=== PATIENT | male | born 1960 | race Caucasian/White ===

== ENCOUNTER 2022-08-21 14:51 | Emergency (ER) | payer MEDICAID ==
[2022-08-21] MEDS: Diltiazem 25 MG/5 ML SDV IVPUSH ONE ×2 (15:17→15:37)
[2022-08-21 15:55] LABS: ALANINE AMINOTRANSFERASE,ALT 23 U/L (12-78); ALBUMIN 3.3 g/dL (3.4-5.0); ALKALINE PHOSPHATASE 76 U/L (46-116); ASPARTATE AMNIOTRANSFERASE,AST 27 U/L (15-37); BILIRUBIN TOTAL 0.6 mg/dL (0.0-1.0); BLOOD UREA NITROGEN,BUN 17 mg/dL (7-18); C-REACTIVE PROTEIN 1.07 mg/dL (<=0.30); CALCIUM 9.1 mg/dL (8.4-10.1); CARBON DIOXIDE,CO2 38 mmol/L (21-32); CHLORIDE,CL 97 mEq/L (98-106); GLUCOSE RANDOM 166 mg/dL (75-99); POTASSIUM,K 3.4 mEq/L (3.5-5.0); PRO B-TYPE NATRIUR PEPT,BNPPRO 2176 pg/mL (0-1000); SODIUM,NA 140 mEq/L (136-145)
[2022-08-21 15:58] LABS: ESTIMATED GFR 86 mL/min (>=60)
== END 2022-08-21 17:18 | disposition home or self-care (01) ==
LOC: CC.ED 14:51
DX: I48.91 Unspecified atrial fibrillation (principal); J44.9 Chronic obstructive pulmonary disease, unspecified; K21.9 Gastro-esophageal reflux disease without esophagitis; Z79.899 Other long term (current) drug therapy; Z79.01 Long term (current) use of anticoagulants; Z91.048 Other nonmedicinal substance allergy status
CPT/HCPCS: 36415; 71045; 80053; 83880; 84484; 85025; 86140; 93005; 96374; 99285-25; J3490

== ENCOUNTER 2022-08-29 01:04 | Emergency (ER) | payer MEDICAID ==
[2022-08-29] MEDS: Morphine 2 MG/ML SYRINGE IVPUSH ONE (01:40)
[2022-08-29 01:48] LABS: BASOPHILS ABSOLUTE AUTO 0.06 10^3/uL (0.00-0.50); BASOPHILS PERCENT AUTO 0.6 % (0-1); EOSINOPHILS ABSOLUTE AUTO 0.07 10^3/uL (0.00-1.50); EOSINOPHILS PERCENT AUTO 0.7 % (0-6); HEMATOCRIT 46.9 % (42.0-52.0); HEMOGLOBIN 14.3 g/dL (14.0-18.0); IMMATURE GRAN ABSOLUTE AUTO 0.02 10^3/uL (0.00-0.49); IMMATURE GRAN PERCENT AUTO 0.2 % (0.0-4.9); LYMPHOCYTES ABSOLUTE AUTO 1.58 10^3/uL (0.60-5.00); LYMPHOCYTES PERCENT AUTO 14.8 % (24-44); MEAN CORPUSCULAR HEMOGLOBIN 26.5 pg (27.0-32.0); MEAN CORPUSCULAR HGB CONC 30.5 g/dL (32.0-36.0); MEAN CORPUSCULAR VOLUME 86.9 fL (83.0-97.0); MONOCYTES ABSOLUTE AUTO 1.24 10^3/uL (0.00-1.50); MONOCYTES PERCENT AUTO 11.6 % (0-10); NEUTROPHILS ABSOLUTE AUTO 7.71 x10^3/uL (1.80-8.00); NEUTROPHILS PERCENT AUTO 72.1 % (41-71); PLATELET COUNT,PLT 229 10^3/uL (150-400); WHITE BLOOD CELL COUNT,WBC 10.7 10^3/uL (4.0-11.0)
[2022-08-29] MEDS ORDERED: Naloxone 2 MG/2 ML Syringe IVPUSH PRN (01:59)
[2022-08-29 02:04] LABS: INR 1.25 (0.92-1.18); PROTHROMBIN TIME 12.8 SEC (9.3-11.3)
[2022-08-29 02:06] LABS: ALBUMIN 2.8 g/dL (3.4-5.0); BILIRUBIN TOTAL 0.4 mg/dL (0.0-1.0); CALCIUM 8.5 mg/dL (8.4-10.1); CREATININE 1.2 mg/dL (0.7-1.3); EST CRCL DRUG DOSING (CG) 65.46 mL/min; MAGNESIUM 1.7 mg/dL (1.8-2.4); POTASSIUM,K 3.3 mEq/L (3.5-5.0); PROTEIN TOTAL,TP 6.1 g/dL (6.4-8.2)
[2022-08-29] MEDS: Sodium Chloride 0.9% 1,000 ML IV ONE (02:10)
[2022-08-29] MEDS: LORazepam 2 MG/ML Syringe IVPUSH ONE (02:30)
[2022-08-29] MEDS ORDERED: Atropine 0.4 MG/ML SDV IVPUSH ONE (03:01)
[2022-08-29] MEDS: Atropine 0.1 MG/ML 10 ML Syringe IVPUSH ONE ×2 (03:06→03:44)
[2022-08-29] MEDS ORDERED: WATER ONE (04:42)
[2022-08-29] MEDS ORDERED: DEXTROSE ONE (04:42)
[2022-08-29] MEDS ORDERED: DOBUTAMINE ONE (04:42)
[2022-08-29] MEDS ORDERED: DOBUTamine/Dextrose 5%-Water 250 MG/250 ML BAG IV SCH (04:45)
[2022-08-29] MEDS: DOPamine/Dextrose 5%-Water 400 MG/250 ML BAG IV SCH (04:47)
== END 2022-08-29 04:55 ==
LOC: CC.ED 01:04
DX: I95.9 Hypotension, unspecified (principal); I48.91 Unspecified atrial fibrillation; I49.5 Sick sinus syndrome; I11.0 Hypertensive heart disease with heart failure; I50.9 Heart failure, unspecified; J44.9 Chronic obstructive pulmonary disease, unspecified; K21.9 Gastro-esophageal reflux disease without esophagitis; F17.210 Nicotine dependence, cigarettes, uncomplicated; Z91.048 Other nonmedicinal substance allergy status; Z79.899 Other long term (current) drug therapy; Z79.01 Long term (current) use of anticoagulants
CPT/HCPCS: 36415; 80053; 82550; 83735; 84484; 85025; 85610; 93005; 93010; 96361; 96374; 96375; 96376; 99284; 99285-25; J0461; J1265; J2060; J2270; J7030

== ENCOUNTER 2022-10-12 12:45 | Inpatient (IN) | payer MEDICAID ==
[2022-10-12] MEDS ORDERED: Albuterol/Ipratropium 3.0-0.5 MG/3 ML Neb Soln NEB ONE (13:09)
[2022-10-12] MEDS ORDERED: Dexamethasone 4 MG/ML SDV IVPUSH ONE (13:09)
[2022-10-12 13:49] LABS: BASOPHILS ABSOLUTE AUTO 0.04 10^3/uL (0.00-0.50); BASOPHILS PERCENT AUTO 0.4 % (0-1); EOSINOPHILS ABSOLUTE AUTO 0.03 10^3/uL (0.00-1.50); EOSINOPHILS PERCENT AUTO 0.3 % (0-6); HEMATOCRIT 44.9 % (42.0-52.0); HEMOGLOBIN 13.7 g/dL (14.0-18.0); IMMATURE GRAN ABSOLUTE AUTO 0.05 10^3/uL (0.00-0.49); IMMATURE GRAN PERCENT AUTO 0.5 % (0.0-4.9); LYMPHOCYTES ABSOLUTE AUTO 1.81 10^3/uL (0.60-5.00); LYMPHOCYTES PERCENT AUTO 18.1 % (24-44); MEAN CORPUSCULAR HGB CONC 30.5 g/dL (32.0-36.0); MEAN CORPUSCULAR VOLUME 88.6 fL (83.0-97.0); MONOCYTES ABSOLUTE AUTO 1.71 10^3/uL (0.00-1.50); MONOCYTES PERCENT AUTO 17.1 % (0-10); NEUTROPHILS ABSOLUTE AUTO 6.35 x10^3/uL (1.80-8.00); NEUTROPHILS PERCENT AUTO 63.6 % (41-71); PLATELET COUNT,PLT 240 10^3/uL (150-400); RED BLOOD CELL COUNT 5.07 x10^6/uL (4.50-6.00)
[2022-10-12 13:50] LABS: O2 DELIVERY DEVICE NASAL CANNULA
[2022-10-12 13:59] LABS: APPEARANCE,URINE CLEAR (CLEAR); BILIRUBIN,URINE NEGATIVE (NEGATIVE); COLOR,URINE YELLOW (YELLOW); GLUCOSE,URINE NEGATIVE (NEGATIVE); KETONES,URINE NEGATIVE (NEGATIVE); LEUKOCYTE ESTERASE,URINE NEGATIVE (NEGATIVE); NITRITE,URINE NEGATIVE (NEGATIVE); OCCULT BLOOD,URINE NEGATIVE (NEGATIVE); PROTEIN,URINE NEGATIVE (NEGATIVE); UROBILINOGEN,URINE 0.2 EU/dL (0.2-1.0)
[2022-10-12 14:04] LABS: PCO2 ARTERIAL 62 mm/Hg0 (35-45); PH,ARTERIAL 7.36 (7.35-7.45)
[2022-10-12 14:05] LABS: BASE EXCESS ARTERIAL 9.9 (-2.0-3.0); BICARBONATE,ARTERIAL 35.3 mm/L (22.0-26.0); O2 SATURATION ARTERIAL 79 % (95-98); PO2 ARTERIAL 46 mm/Hg (80-100)
[2022-10-12 14:07] LABS: BACTERIA,URINE NOT SEEN /HPF (NOT SEEN); RBC,URINE 0-5 /HPF (0-5); SQUAMOUS EPITHELIAL CELLS,UR NOT SEEN /HPF (NOT SEEN); WBC,URINE NOT SEEN /HPF (0-5)
[2022-10-12 14:18] LABS: ALBUMIN 3.2 g/dL (3.4-5.0); BILIRUBIN TOTAL 0.5 mg/dL (0.0-1.0); CALCIUM 8.5 mg/dL (8.4-10.1); EST CRCL DRUG DOSING (CG) 77.57 mL/min; POTASSIUM,K 3.7 mEq/L (3.5-5.0); PROTEIN TOTAL,TP 6.5 g/dL (6.4-8.2)
[2022-10-12 14:27] LABS: LACTIC ACID 1.2 mmol/L (0.4-2.0)
[2022-10-12] MEDS ORDERED: Furosemide 40 MG/4 ML VIAL IVPUSH ONE (15:00)
[2022-10-12] MEDS ORDERED: Iopamidol 755 Mg/ML 100 ML Bottle IVPUSH ONE (15:08)
[2022-10-12] MEDS ORDERED: Docusate Sodium 100 MG Cap PO PRN (16:59)
[2022-10-12] MEDS ORDERED: Albuterol/Ipratropium 3.0-0.5 MG/3 ML Neb Soln NEB PRN (16:59)
[2022-10-12] MEDS ORDERED: Albuterol 0.083% 2.5 MG/3 ML Neb Soln NEB PRN (16:59)
[2022-10-12] MEDS ORDERED: Polyethylene Glycol 3350 Powder 17 GM Packet PO PRN (16:59)
[2022-10-12] MEDS ORDERED: Ondansetron 4 MG/2 ML SDV IV PRN (16:59)
[2022-10-12] MEDS ORDERED: oxyCODONE 5 MG Tab PO PRN (16:59)
[2022-10-12] MEDS ORDERED: cefTRIAXone 2 GM Vial IVPUSH ONE (17:07)
[2022-10-12] MEDS: Potassium Chloride 10 MEQ Tab.ER PO SCH (17:30)
[2022-10-12] MEDS: Azithromycin 250 MG Tab PO SCH (17:30)
[2022-10-12] MEDS: Albuterol/Ipratropium 3.0-0.5 MG/3 ML Neb Soln NEB SCH (18:19)
[2022-10-12] MEDS: Diltiazem 180 MG Cap.CD PO SCH (19:28)
[2022-10-12] MEDS: Apixaban 5 MG Tab PO SCH (19:28)
[2022-10-13] MEDS: Albuterol/Ipratropium 3.0-0.5 MG/3 ML Neb Soln NEB SCH ×5 (00:17→23:26)
[2022-10-13] MEDS: Acetaminophen 325 MG Tab PO PRN ×3 (01:35→23:33)
[2022-10-13] MEDS: Pantoprazole 40 MG Tab.CR PO SCH (06:01)
[2022-10-13] MEDS ORDERED: Dexamethasone 4 MG/ML SDV IVPUSH SCH (08:00)
[2022-10-13] MEDS ORDERED: Torsemide 20 MG Tab PO SCH (08:00)
[2022-10-13] MEDS: Azithromycin 250 MG Tab PO SCH (08:08)
[2022-10-13] MEDS: Apixaban 5 MG Tab PO SCH ×2 (08:08→19:46)
[2022-10-13] MEDS: Torsemide 20 MG Tab PO SCH (08:09)
[2022-10-13] MEDS: Diltiazem 180 MG Cap.CD PO SCH ×2 (08:09→19:46)
[2022-10-13] MEDS: Metoprolol Succinate 25 MG Tab.ER PO SCH (08:09)
[2022-10-13] MEDS: Potassium Chloride 10 MEQ Tab.ER PO SCH ×2 (08:10→16:46)
[2022-10-13 08:36] LABS: BASOPHILS ABSOLUTE AUTO 0.02 10^3/uL (0.00-0.50); BASOPHILS PERCENT AUTO 0.2 % (0-1); HEMOGLOBIN 14.8 g/dL (14.0-18.0); IMMATURE GRAN ABSOLUTE AUTO 0.03 10^3/uL (0.00-0.49); IMMATURE GRAN PERCENT AUTO 0.4 % (0.0-4.9); LYMPHOCYTES ABSOLUTE AUTO 0.66 10^3/uL (0.60-5.00); LYMPHOCYTES PERCENT AUTO 7.8 % (24-44); MEAN CORPUSCULAR HEMOGLOBIN 27.2 pg (27.0-32.0); MEAN CORPUSCULAR HGB CONC 30.8 g/dL (32.0-36.0); MEAN CORPUSCULAR VOLUME 88.2 fL (83.0-97.0); MONOCYTES ABSOLUTE AUTO 0.77 10^3/uL (0.00-1.50); MONOCYTES PERCENT AUTO 9.1 % (0-10); NEUTROPHILS ABSOLUTE AUTO 7.02 x10^3/uL (1.80-8.00); NEUTROPHILS PERCENT AUTO 82.5 % (41-71); PLATELET COUNT,PLT 234 10^3/uL (150-400); RED BLOOD CELL COUNT 5.44 x10^6/uL (4.50-6.00); WHITE BLOOD CELL COUNT,WBC 8.5 10^3/uL (4.0-11.0)
[2022-10-13 09:01] LABS: ALBUMIN 3.4 g/dL (3.4-5.0); BILIRUBIN TOTAL 0.3 mg/dL (0.0-1.0); CALCIUM 8.9 mg/dL (8.4-10.1); CREATININE 0.9 mg/dL (0.7-1.3); EST CRCL DRUG DOSING (CG) 86.19 mL/min; POTASSIUM,K 4.4 mEq/L (3.5-5.0); PROTEIN TOTAL,TP 7.2 g/dL (6.4-8.2)
[2022-10-13] MEDS: cefTRIAXone 1 GM Vial IVPUSH SCH (16:46)
[2022-10-13] MEDS ORDERED: cefTRIAXone 1 GM Vial IVPUSH SCH (17:00)
[2022-10-13] MEDS: Nicotine 21 MG/24 Hr Patch TRDERM SCH (19:46)
[2022-10-14] MEDS: Temazepam 15 MG Cap PO PRN ×2 (01:07→22:58)
[2022-10-14] MEDS: Albuterol/Ipratropium 3.0-0.5 MG/3 ML Neb Soln NEB SCH ×4 (05:56→23:31)
[2022-10-14] MEDS: Pantoprazole 40 MG Tab.CR PO SCH (06:16)
[2022-10-14 07:43] LABS: BASOPHILS ABSOLUTE AUTO 0.01 10^3/uL (0.00-0.50); BASOPHILS PERCENT AUTO 0.1 % (0-1); HEMATOCRIT 45.3 % (42.0-52.0); HEMOGLOBIN 14.1 g/dL (14.0-18.0); IMMATURE GRAN ABSOLUTE AUTO 0.05 10^3/uL (0.00-0.49); IMMATURE GRAN PERCENT AUTO 0.4 % (0.0-4.9); LYMPHOCYTES ABSOLUTE AUTO 0.95 10^3/uL (0.60-5.00); LYMPHOCYTES PERCENT AUTO 6.9 % (24-44); MEAN CORPUSCULAR HEMOGLOBIN 27.2 pg (27.0-32.0); MEAN CORPUSCULAR HGB CONC 31.1 g/dL (32.0-36.0); MEAN CORPUSCULAR VOLUME 87.5 fL (83.0-97.0); MONOCYTES ABSOLUTE AUTO 0.94 10^3/uL (0.00-1.50); MONOCYTES PERCENT AUTO 6.8 % (0-10); NEUTROPHILS ABSOLUTE AUTO 11.87 x10^3/uL (1.80-8.00); NEUTROPHILS PERCENT AUTO 85.8 % (41-71); PLATELET COUNT,PLT 237 10^3/uL (150-400); RED BLOOD CELL COUNT 5.18 x10^6/uL (4.50-6.00); WHITE BLOOD CELL COUNT,WBC 13.8 10^3/uL (4.0-11.0)
[2022-10-14] MEDS: Torsemide 20 MG Tab PO SCH (07:47)
[2022-10-14] MEDS: Potassium Chloride 10 MEQ Tab.ER PO SCH ×2 (07:47→17:10)
[2022-10-14] MEDS: Metoprolol Succinate 25 MG Tab.ER PO SCH (07:48)
[2022-10-14] MEDS: Azithromycin 250 MG Tab PO SCH (07:48)
[2022-10-14] MEDS: Dexamethasone 10 MG/ML SDV IVPUSH SCH (07:48)
[2022-10-14] MEDS: Apixaban 5 MG Tab PO SCH ×2 (07:49→19:49)
[2022-10-14] MEDS: Diltiazem 180 MG Cap.CD PO SCH ×2 (07:49→19:49)
[2022-10-14 08:12] LABS: ALBUMIN 3.2 g/dL (3.4-5.0); BILIRUBIN TOTAL 0.3 mg/dL (0.0-1.0); EST CRCL DRUG DOSING (CG) 77.57 mL/min; POTASSIUM,K 4.1 mEq/L (3.5-5.0); PROTEIN TOTAL,TP 6.8 g/dL (6.4-8.2)
[2022-10-14] MEDS: Acetaminophen 325 MG Tab PO PRN ×2 (14:05→22:58)
[2022-10-14] MEDS: cefTRIAXone 1 GM Vial IVPUSH SCH (16:37)
[2022-10-14] MEDS: Nicotine 21 MG/24 Hr Patch TRDERM SCH (19:49)
[2022-10-15] MEDS: Pantoprazole 40 MG Tab.CR PO SCH (06:16)
[2022-10-15] MEDS: Albuterol/Ipratropium 3.0-0.5 MG/3 ML Neb Soln NEB SCH ×4 (06:17→23:15)
[2022-10-15] MEDS: Diltiazem 180 MG Cap.CD PO SCH ×2 (07:47→19:36)
[2022-10-15] MEDS: Apixaban 5 MG Tab PO SCH ×2 (07:47→19:36)
[2022-10-15] MEDS: Torsemide 20 MG Tab PO SCH (07:47)
[2022-10-15] MEDS: Metoprolol Succinate 25 MG Tab.ER PO SCH (07:47)
[2022-10-15] MEDS: Potassium Chloride 10 MEQ Tab.ER PO SCH ×2 (07:48→17:10)
[2022-10-15] MEDS: Azithromycin 250 MG Tab PO SCH (07:48)
[2022-10-15] MEDS: Dexamethasone 10 MG/ML SDV IVPUSH SCH (07:52)
[2022-10-15 08:04] LABS: BASOPHILS ABSOLUTE AUTO 0.01 10^3/uL (0.00-0.50); BASOPHILS PERCENT AUTO 0.1 % (0-1); EOSINOPHILS ABSOLUTE AUTO 0.01 10^3/uL (0.00-1.50); EOSINOPHILS PERCENT AUTO 0.1 % (0-6); HEMATOCRIT 47.6 % (42.0-52.0); HEMOGLOBIN 14.8 g/dL (14.0-18.0); IMMATURE GRAN ABSOLUTE AUTO 0.06 10^3/uL (0.00-0.49); IMMATURE GRAN PERCENT AUTO 0.4 % (0.0-4.9); LYMPHOCYTES ABSOLUTE AUTO 1.08 10^3/uL (0.60-5.00); MEAN CORPUSCULAR HEMOGLOBIN 27.1 pg (27.0-32.0); MEAN CORPUSCULAR HGB CONC 31.1 g/dL (32.0-36.0); MEAN CORPUSCULAR VOLUME 87.2 fL (83.0-97.0); MONOCYTES ABSOLUTE AUTO 0.95 10^3/uL (0.00-1.50); MONOCYTES PERCENT AUTO 7.1 % (0-10); NEUTROPHILS ABSOLUTE AUTO 11.32 x10^3/uL (1.80-8.00); NEUTROPHILS PERCENT AUTO 84.3 % (41-71); PLATELET COUNT,PLT 249 10^3/uL (150-400); RED BLOOD CELL COUNT 5.46 x10^6/uL (4.50-6.00); WHITE BLOOD CELL COUNT,WBC 13.4 10^3/uL (4.0-11.0)
[2022-10-15 08:22] LABS: ALBUMIN 3.2 g/dL (3.4-5.0); BILIRUBIN TOTAL 0.3 mg/dL (0.0-1.0); CALCIUM 8.7 mg/dL (8.4-10.1); EST CRCL DRUG DOSING (CG) 77.57 mL/min; PROTEIN TOTAL,TP 6.9 g/dL (6.4-8.2)
[2022-10-15 08:58] LABS: POTASSIUM,K 4.3 mEq/L (3.5-5.0)
[2022-10-15] MEDS: cefTRIAXone 1 GM Vial IVPUSH SCH (17:08)
[2022-10-15] MEDS: Nicotine 21 MG/24 Hr Patch TRDERM SCH (19:36)
[2022-10-15] MEDS: Temazepam 15 MG Cap PO PRN (22:27)
[2022-10-16] MEDS: Albuterol/Ipratropium 3.0-0.5 MG/3 ML Neb Soln NEB SCH (06:13)
[2022-10-16] MEDS: Pantoprazole 40 MG Tab.CR PO SCH (06:13)
[2022-10-16 07:50] LABS: HEMOGLOBIN 15.3 g/dL (14.0-18.0); IMMATURE GRAN ABSOLUTE AUTO 0.06 10^3/uL (0.00-0.49); IMMATURE GRAN PERCENT AUTO 0.5 % (0.0-4.9); LYMPHOCYTES PERCENT AUTO 6.8 % (24-44); MEAN CORPUSCULAR HEMOGLOBIN 27.2 pg (27.0-32.0); MEAN CORPUSCULAR HGB CONC 31.2 g/dL (32.0-36.0); MEAN CORPUSCULAR VOLUME 87.2 fL (83.0-97.0); MONOCYTES ABSOLUTE AUTO 0.96 10^3/uL (0.00-1.50); MONOCYTES PERCENT AUTO 7.3 % (0-10); NEUTROPHILS ABSOLUTE AUTO 11.32 x10^3/uL (1.80-8.00); NEUTROPHILS PERCENT AUTO 85.4 % (41-71); PLATELET COUNT,PLT 267 10^3/uL (150-400); RED BLOOD CELL COUNT 5.62 x10^6/uL (4.50-6.00); WHITE BLOOD CELL COUNT,WBC 13.2 10^3/uL (4.0-11.0)
[2022-10-16] MEDS: Apixaban 5 MG Tab PO SCH ×2 (07:52→19:30)
[2022-10-16] MEDS: Diltiazem 180 MG Cap.CD PO SCH ×2 (07:52→19:29)
[2022-10-16] MEDS: Torsemide 20 MG Tab PO SCH (07:52)
[2022-10-16] MEDS: Metoprolol Succinate 25 MG Tab.ER PO SCH (07:52)
[2022-10-16] MEDS: Azithromycin 250 MG Tab PO SCH (07:52)
[2022-10-16] MEDS: Potassium Chloride 10 MEQ Tab.ER PO SCH ×2 (07:58→16:36)
[2022-10-16 08:48] LABS: ALBUMIN 3.2 g/dL (3.4-5.0); BILIRUBIN TOTAL 0.4 mg/dL (0.0-1.0); CALCIUM 8.8 mg/dL (8.4-10.1); EST CRCL DRUG DOSING (CG) 77.57 mL/min; POTASSIUM,K 4.2 mEq/L (3.5-5.0); PROTEIN TOTAL,TP 6.9 g/dL (6.4-8.2)
[2022-10-16] MEDS: Nystatin Susp 100,000 Unit/ML 5 ML UD Cup PO SCH ×3 (11:27→19:31)
[2022-10-16] MEDS: cefTRIAXone 1 GM Vial IVPUSH SCH (15:52)
[2022-10-16] MEDS: Nicotine 21 MG/24 Hr Patch TRDERM SCH (19:30)
[2022-10-16] MEDS: Temazepam 15 MG Cap PO PRN (21:19)
[2022-10-17] MEDS: Pantoprazole 40 MG Tab.CR PO SCH (06:20)
[2022-10-17] MEDS: Torsemide 20 MG Tab PO SCH (07:57)
[2022-10-17] MEDS: Diltiazem 180 MG Cap.CD PO SCH (07:57)
[2022-10-17] MEDS: Potassium Chloride 10 MEQ Tab.ER PO SCH (07:57)
[2022-10-17] MEDS: Metoprolol Succinate 25 MG Tab.ER PO SCH (07:57)
[2022-10-17] MEDS: Apixaban 5 MG Tab PO SCH (07:57)
[2022-10-17] MEDS: Nystatin Susp 100,000 Unit/ML 5 ML UD Cup PO SCH ×2 (07:58→12:30)
== END 2022-10-17 14:00 | disposition home or self-care (01) | DRG 193 ==
LOC: CC.ED 12:45 → SUPCPDRO 12:45 → CC.MS 16:48 → UNDOADMIN 16:57 → CC.MS 16:57
PROVIDERS: ADMIT Physician Assistant Medical; ATTEND Physician Assistant Medical
PROC: 4A033R1 Measurement of Arterial Saturation, Peripheral, Percutaneous Approach (ICD-10-PCS; principal; 2022-10-12)
DX: J18.9 Pneumonia, unspecified organism (principal); I50.23 Acute on chronic systolic (congestive) heart failure; R09.02 Hypoxemia; I11.0 Hypertensive heart disease with heart failure; I48.91 Unspecified atrial fibrillation; J44.9 Chronic obstructive pulmonary disease, unspecified; K21.9 Gastro-esophageal reflux disease without esophagitis; Z79.01 Long term (current) use of anticoagulants; Z91.048 Other nonmedicinal substance allergy status; Z79.899 Other long term (current) drug therapy; Z95.0 Presence of cardiac pacemaker; Z87.81 Personal history of (healed) traumatic fracture; Z87.11 Personal history of peptic ulcer disease; Z98.890 Other specified postprocedural states
CPT/HCPCS: 36415; 36600; 71045; 71275; 80053; 81001; 82803; 83605; 83735; 83880; 84484; 85025; 87040; 87070; 87205; 93005; 93010; 94640; 96374; 96375; 97161-GP; 99223; 99232; 99233; 99238; 99291-25; A9270-GY; J0696; J1100; J1940; J7620-GY; Q9967